=== PATIENT | male | born 1995 | race Caucasian/White ===

== ENCOUNTER 2020-10-22 07:55 | Day surgery (SDC) | payer BC ==
[~2020-10-22] VITALS: Ht 172.7 cm; Wt 63.5 kg
[~2020-10-22 07:55] MED LIST: TOPAMAX25 MG PO; Z-QUIL PO; [UNRECOGNIZED DRUG - OTHER] PO
[2020-10-22 10:13] VITALS: BP 116/69
== END 2020-10-22 10:10 | disposition home or self-care (01) | DRG 392 ==
LOC: ENDO 07:55 → ORM 14:00 → ENDO 14:00
PROVIDERS: ATTEND Internal Medicine Gastroenterology
PROC: 0D758ZZ Dilation of Esophagus, Via Natural or Artificial Opening Endoscopic (ICD-10-PCS; principal; 2020-10-22)
PROC: 0DB98ZX Excision of Duodenum, Via Natural or Artificial Opening Endoscopic, Diagnostic (ICD-10-PCS; 2020-10-22)
PROC: 0DB58ZX Excision of Esophagus, Via Natural or Artificial Opening Endoscopic, Diagnostic (ICD-10-PCS; 2020-10-22)
PROC: 0DB48ZX Excision of Esophagogastric Junction, Via Natural or Artificial Opening Endoscopic, Diagnostic (ICD-10-PCS; 2020-10-22)
DX: K22.8 Other specified diseases of esophagus (principal); K29.70 Gastritis, unspecified, without bleeding; Q40.8 Other specified congenital malformations of upper alimentary tract; K21.9 Gastro-esophageal reflux disease without esophagitis; Z20.828 Contact with and (suspected) exposure to other viral communicable diseases